=== PATIENT | male | born 1965 | race Hispanic/Latino ===

== ENCOUNTER 2022-03-14 20:56 | Emergency (ER) | payer BC, OTHER ==
[~2022-03-14] VITALS: Ht 177.8 cm; Wt 113.4 kg
[~2022-03-14 20:56] MED LIST: AZITHROMYCIN250 MG PO; XOPENEX HFA15 GM
[2022-03-14] MEDS ORDERED: HYDROCODONE/APAP 10MG-325MG TAB PO ONE (21:15)
[2022-03-14] MEDS ORDERED: HYDROCODON-ACE1 EAC9 PO (22:32)
[2022-03-14] MEDS ORDERED: NAPROSYN500 MG PO (22:40)
[2022-03-14 23:07] VITALS: BP 154/79
[2022-03-14] MEDS ORDERED: HYDROCODON-ACE1 EA11 PO (23:18)
== END 2022-03-14 22:54 | disposition home or self-care (01) ==
LOC: ER 21:01
DX: S46.292A Other injury of muscle, fascia and tendon of other parts of biceps, left arm, initial encounter (principal); W01.0XXA Fall on same level from slipping, tripping and stumbling without subsequent striking against object, initial encounter; Y93.01 Activity, walking, marching and hiking; Y92.89 Other specified places as the place of occurrence of the external cause; Z85.72 Personal history of non-Hodgkin lymphomas
CPT/HCPCS: 99283

== ENCOUNTER 2024-05-18 09:21 | Emergency (ER) | payer BC, OTHER ==
[~2024-05-18] VITALS: Ht 177.8 cm; Wt 113.4 kg
[~2024-05-18 09:21] MED LIST changes: +HYDROCODON-ACE1 EA11 PO; +HYDROCODON-ACE1 EAC9 PO; +NAPROSYN500 MG PO
[2024-05-18 09:22] VITALS: TEMP 97.4
[2024-05-18] MEDS ORDERED: NAPROXEN250 MG PO (10:26)
[2024-05-18] MEDS: KETOROLAC TROMETHAMINE 30 MG/ML VIAL IM STA (10:30)
[2024-05-18] MEDS: DEXAMETHASONE 4 MG TAB PO STA (10:30)
[2024-05-18] MEDS: LIDOCAINE 4% PATCH TP STA (10:31)
[2024-05-18 10:32] VITALS: PULSE 68; RESP 15; O2SAT 97
[2024-05-18] MEDS: ACETAMINOPHEN 325 MG TAB PO ONE (10:32)
== END 2024-05-18 12:14 | disposition home or self-care (01) ==
LOC: ER 09:23
DX: M54.50 Low back pain, unspecified (principal); G89.29 Other chronic pain; X50.1XXA Overexertion from prolonged static or awkward postures, initial encounter; Y92.89 Other specified places as the place of occurrence of the external cause; Z85.72 Personal history of non-Hodgkin lymphomas
CPT/HCPCS: 99284; J1885; J8540

== ENCOUNTER 2024-05-26 17:41 | Emergency (ER) | payer BC, OTHER ==
[~2024-05-26] VITALS: Ht 177.8 cm; Wt 108.9 kg
[~2024-05-26 17:41] MED LIST changes: +NAPROXEN250 MG PO
[2024-05-26 17:53] VITALS: PULSE 90; RESP 16; TEMP 98.1
[2024-05-26] MEDS: IBUPROFEN 600 MG TAB PO STA (20:27)
[2024-05-26 20:33] VITALS: BP 139/87; O2SAT 100
== END 2024-05-26 20:35 | disposition home or self-care (01) ==
LOC: ER 18:12
DX: S93.691A Other sprain of right foot, initial encounter (principal); W01.0XXA Fall on same level from slipping, tripping and stumbling without subsequent striking against object, initial encounter; Y93.01 Activity, walking, marching and hiking; Y92.89 Other specified places as the place of occurrence of the external cause; M54.9 Dorsalgia, unspecified; G89.29 Other chronic pain; Z85.72 Personal history of non-Hodgkin lymphomas
CPT/HCPCS: 99284